=== PATIENT | female | born 1955 | race American Indian/Alaskan Native ===

== ENCOUNTER 2016-12-12 08:15 | Day surgery (SDC) | payer OTHER ==
[2016-12-12] MEDS ORDERED: NACL 0.9% 1000 ML 1,000 ML IV SCH (09:30)
[2016-12-12] MEDS ORDERED: DIPRIVAN 10 MG/ML IV ONE ×2 (10:27)
[2016-12-12] MEDS ORDERED: WATER FOR IRRIG STERILE IR ONE (11:14)
--- NOTE | 2016-12-12 11:48 | Short Stay Summary ---
Short Stay Documentation - Allergies and Medications Current Medications: Allergies No Known Allergies Allergy (Verified 12/12/16 09:30) Home Medications Medication Instructions Recorded Confirmed Last Taken Type Labetalol HCl 300 mg PO 12/12/16 12/12/16 History Losartan/Hydrochlorothiazide 1 each PO 12/12/16 12/12/16 History [Losartan-Hctz 100-25 mg Tab] Omeprazole 40 mg PO 12/12/16 12/12/16 History Potassium 12/12/16 12/12/16 History amLODIPine [Norvasc] 10 mg PO DAILY 12/12/16 12/12/16 12/12/16 History Active Medications Sodium Chloride (Nacl 0.9% 1000 Ml) 1,000 mls @ 50 mls/hr IV DIRECT BEREKET - Brief post op/procedure progress note Date of procedure: 12/12/16 Pre-op diagnosis: Colon cancer screening Post-op diagnosis: same (1. Internal hemorrhoids) Procedure: Colonoscopy Anesthesia: MAC Findings: as above Surgeon: RUSLAN SHAH Estimated blood loss: none Pathology: none Condition: stable - Disposition Condition at discharge: Stable Disposition: DC-01 TO HOME OR SELFCARE Short Stay Discharge Plan Activity: no restrictions Weight Bearing Status: Full Weight Bearing Diet: regular Follow up with: KUNAL TRAYLOR MD [Primary Care Provider] - 7 Days
--- NOTE | 2016-12-12 11:51 | Anesthesia Day of Surgery ---
Anesthesia Day of Surgery - Day of Surgery Patient Examined: Yes Patient H&P Reviewed: Yes Patient is NPO: Yes
--- NOTE | 2016-12-12 11:52 | Anesthesia Consultation ---
Anesthesia Consult and Med Hx Date of service: 12/12/16 - Airway Anesthetic Teeth Evaluation: Good ROM Head & Neck: Adequate Mental/Hyoid Distance: Adequate Mallampati Class: Class II Intubation Access Assessment: Probably Good - Pulmonary Exam CTA: Yes - Cardiac Exam Cardiac Exam: RRR - Pre-Operative Health Status ASA Pre-Surgery Classification: ASA2 Proposed Anesthetic Plan: MAC - Pulmonary Hx Smoking: Yes (1/2 ppd on and off) - Cardiovascular System Hx Hypertension: Yes - Additional Comments Anesthesia Medical History Comments: no previous surgery, endoscopy done in past without complication
[2016-12-12 12:15] VITALS: BP 146/84
--- NOTE | 2016-12-12 13:28 | Post Anesthesia Evaluation ---
- Post Anesthesia Evaluation Patient Participated: Yes Airway Patent: Yes Stable Respiratory Function: Yes Nausea/Vomiting: No Temp > 96.8F: Yes Pain Manageable: Yes Adequeate Hydration: Yes Anesthesia Complications: No
== END 2016-12-12 08:16 | disposition home or self-care (01) ==
LOC: GIO 08:15
PROVIDERS: ATTEND Internal Medicine Gastroenterology
DX: Z12.11 Encounter for screening for malignant neoplasm of colon (principal); K64.0 First degree hemorrhoids; K21.9 Gastro-esophageal reflux disease without esophagitis; M19.90 Unspecified osteoarthritis, unspecified site; M10.9 Gout, unspecified; I10 Essential (primary) hypertension; F17.210 Nicotine dependence, cigarettes, uncomplicated; Z87.448 Personal history of other diseases of urinary system; Z98.890 Other specified postprocedural states
CPT/HCPCS: 45378; J2704

== ENCOUNTER 2022-01-23 09:31 | Outpatient (CLI) | payer MEDICARE ==
[2022-01-23 10:14] LABS: Calcium 10.1 mg/dL (8.4-10.2)
== END 2022-01-23 09:32 | disposition home or self-care (01) ==
LOC: LAB 09:31
PROVIDERS: ATTEND Internal Medicine Nephrology
DX: N18.30 Chronic kidney disease, stage 3 unspecified (principal)
CPT/HCPCS: 36415; 80048